=== PATIENT | female | born 1980 | race Hispanic/Latino ===

== ENCOUNTER 2018-06-20 19:49 | Emergency (ER) | payer MEDICARE, MEDICAID ==
[2018-06-20 20:02] VITALS: BP 150/83; PULSE 110; RESP 16; TEMP 97.7; O2SAT 98
--- NOTE | 2018-06-20 20:27 | ED PDOC ---
Upper Extremity Pain/Injury Time Seen by Provider: 06/20/18 20:02 Chief Complaint (Nursing): Upper Extremity Problem/Injury Chief Complaint (Provider): Upper Extremity Problem/Injury History Per: Patient History/Exam Limitations: no limitations Onset/Duration Of Symptoms: Days Current Symptoms Are (Timing): Still Present Additional Complaint(s): 37 y/o female with a PMHx of substance abuse presents to the ED for evaluation of an abnormal skin integrity to the right upper extremity. Patient describes the abnormal skin integrity as painful. Otherwise, patient denies any other complaints or pain at this time. PMD: Non [facility] Provider Past Medical History Reviewed: Historical Data, Nursing Documentation, Vital Signs Vital Signs: Last Vital Signs Temp 97.7 F 06/20/18 19:59 Pulse 110 H 06/20/18 19:59 Resp 16 06/20/18 19:59 BP 150/83 06/20/18 19:59 Pulse Ox 98 06/20/18 19:59 - Medical History PMH: Anxiety - Surgical History Surgical History: No Surg Hx - Family History Family History: States: Unknown Family Hx - Social History Drugs: Denies - Allergies Allergies/Adverse Reactions: Allergies Allergy/AdvReac Type Severity Reaction Status Date / Time Penicillins Allergy RASH Verified 06/20/18 19:57 - Laboratory Results Result Diagrams: 06/20/18 21:25 06/20/18 21:25 - ECG O2 Sat by Pulse Oximetry: 98 Medical Decision Making Medical Decision Making: Time: 2009 Plan: -- US Soft Tissue Time: 2041 Plan: -- CBC with Differentials -- CMP Time: 2246 IMPRESSION: Left antecubital fossa soft tissue edema. No evidence of abscess. Electronically signed on Jun 20, 2018 10:47:04 PM EST by: Michele Rodriguez M.D., JACOB Certified By [facility] Fellowship Trained MRI and CT Specialist Scribe Attestation: Documented by Sumit Cardona, acting as a scribe for Bernardo Fregoso PA-C. Provider Scribe Attestation: All medical record entries made by the Scribe were at my direction and personally dictated by me. I have reviewed the chart and agree that the record accurately reflects my personal performance of the history, physical exam, med ica decision making, and the department course for this patient. I have also personally directed, reviewed, and agree with the discharge instructions and disposition. Disposition - Clinical Impression Clinical Impression: Induration of skin - Patient ED Disposition Is Patient to be Admitted: No Doctor Will See Patient In The: Office Counseled Patient/Family Regarding: Studies Performed, Diagnosis, Need For Followup, Rx Given - Disposition Referrals: [facility] [Outside] Disposition: Routine/Home Disposition Time: 23:06 Condition: STABLE Instructions: Lysis of Adhesions (DC) Forms: [employer] (Italian)
[2018-06-20 21:33] LABS: BASO % 0.3 % (0.0-2.0); EOS # 0.4 K/uL (0.0-0.7); EOS % 5.7 % (0.0-4.0); HEMOGLOBIN 11.9 g/dL (12.0-16.0); LYMPH # 2.8 K/uL (1.0-4.3); LYMPH % 40.8 % (20.0-40.0); MEAN CELL VOLUME 80.8 fl (81.0-99.0); MEAN CORPUSCULAR HEMOGLOBIN 25.7 pg (27.0-31.0); MEAN CORPUSCULAR HGB CONC 31.8 g/dL (33.0-37.0); MONO # 0.5 K/uL (0.0-0.8); MONO % 6.9 % (0.0-10.0); NEUT # 3.1 K/uL (1.8-7.0); NEUT % 46.3 % (50.0-75.0); RBC 4.64 Mil/uL (3.80-5.20); RED CELL DISTRIBUTION WIDTH 15.8 % (11.5-14.5); WHITE BLOOD COUNT 6.8 K/uL (4.8-10.8)
[2018-06-20 21:41] LABS: ALB/GLOB RATIO 1.1 (1.0-2.1); ALBUMIN 3.6 g/dL (3.5-5.0); ALT/SGPT 36 U/L (9-52); AST/SGOT 64 U/L (14-36); BLOOD UREA NITROGEN 21 mg/dl (7-17); CALCIUM 8.8 mg/dL (8.4-10.2); GFR NON-AFRICAN AMERICAN > 60
--- NOTE | 2018-06-21 08:41 | US ---
Date of service: 06/20/2018 PROCEDURE: HISTORY: rule out abscess COMPARISON: TECHNIQUE: FINDINGS: Targeted imaging of the left antecubital fossa demonstrates soft tissue edema without solid or cystic abnormality. Recommend follow-up if clinically indicated. IMPRESSION: As above.
== END 2018-06-20 23:17 | disposition home or self-care (01) ==
LOC: H.ER 19:49
DX: R23.4 Changes in skin texture (principal); F41.9 Anxiety disorder, unspecified; Z88.0 Allergy status to penicillin

== ENCOUNTER 2018-08-07 10:47 | Inpatient (IN) | payer MEDICARE, MEDICAID ==
[2018-08-07 10:49] VITALS: BMI 26.2
[2018-08-07] MEDS ORDERED: Piperacillin/Tazobact 3.375 GM in Sodium Chloride 0.9% 100 ML IV STA (11:30)
--- NOTE | 2018-08-07 11:35 | ED PDOC ---
HPI: Skin/Bite Injury Time Seen by Provider: 08/07/18 10:57 Chief Complaint (Nursing): Abnormal Skin Integrity Chief Complaint (Provider): Arm infection History Per: Patient Additional Complaint(s): 37 yo female, PMH of DM and IVDS (Last used 1.5 weeks ago), presents with complaints of redness, swelling and pain to left elbow. Pt rpeorts she last used IV Heroin 1.5 weeks ago, unsure if she injected into AC. Pt notes she usually does her hands. Pt also reports congestion and cough x 2 weeks as well. no fever or chills. Pt reports the redness and swelling to her elbow was mild x 2 days and last night it became severe and now draining serous fluid. Past Medical History Reviewed: Nursing Documentation, Vital Signs Vital Signs: Last Vital Signs Temp 98.2 F 08/07/18 10:49 Pulse 109 H 08/07/18 10:49 Resp 17 08/07/18 10:49 BP 139/77 08/07/18 10:49 Pulse Ox 100 08/07/18 10:49 - Medical History PMH: Anxiety, Depression, Diabetes (IDDM) - Family History Family History: States: Unknown Family Hx - Social History Alcohol: Social Drugs: Cocaine, Opiates, Other (Last used IV heroin 1.5 weeks ago according to Pt) - Immunization History Hx Tetanus Toxoid Vaccination: No Hx Influenza Vaccination: No Hx Pneumococcal Vaccination: No - Home Medications Home Medications: Ambulatory Orders Medication Instructions Recorded ALPRAZolam [Xanax] 1 mg PO Q8 08/07/18 Cyclobenzaprine [Flexeril] 10 mg PO Q8 PRN 08/07/18 Insulin Aspart, Recombinant 6 - 11 unit SC AC 08/07/18 [Novolog] Insulin Detemir [Levemir] 5 unit SC QAM 08/07/18 Insulin Detemir [Levemir] 15 unit SC QPM 08/07/18 - Allergies Allergies/Adverse Reactions: Allergies Allergy/AdvReac Type Severity Reaction Status Date / Time Penicillins Allergy RASH Verified 07/29/18 18:28 Review of Systems ROS Statement: Except As Marked, All Systems Reviewed And Found Negative Constitutional: Positive for: Chills Musculoskeletal: Positive for: Arm Pain Skin: Positive for: Other (redness and swelling) Physical Exam - Reviewed Nursing Documentation Reviewed: Yes Vital Signs Reviewed: Yes - Physical Exam Appears: Positive for: Non-toxic, No Acute Distress, Uncomfortable Head Exam: Positive for: ATRAUMATIC, NORMAL INSPECTION, NORMOCEPHALIC Skin: Positive for: Normal Color, Warm, DRY Eye Exam: Positive for: EOMI, Normal appearance, PERRL ENT: Positive for: Normal ENT Inspection Neck: Positive for: Normal, Painless ROM Cardiovascular/Chest: Positive for: Regular Rate, Rhythm Respiratory: Positive for: CNT, Normal Breath Sounds Gastrointestinal/Abdominal: Positive for: Normal Exam, Soft Back: Positive for: Normal Inspection Extremity: Positive for: Tenderness, Swelling, Other (warmth and moderate erythema to anticubial fossa of L elbow. Site indurated and tender to palpation, no flutuance appreacted; however, (+) centtralized area of scabbing to AC fossa, (+) drainage of serous fluid. ) Neurologic/Psych: Positive for: Alert, Oriented - Laboratory Results Result Diagrams: 08/07/18 12:18 08/07/18 15:50 - ECG O2 Sat by Pulse Oximetry: 100 Medical Decision Making Medical Decision Making: IV access established and diagnostics ordered. Pt placed on cardiac rehabilitation program director: 109, Temp upon arrival: 99.9 F Lactate 2.2 11.2 WBC Pt meets criteria for sepsis IV Vanco and Zosyn administered thought EJ, IV access unable to be obtained. Morphine administered for pain. Case discussed with Surgeon on-call, Dr. Andres, who advised due to joint involvement, Ortho should be consulted. Orthopedic, Dr. Barrett, consulted and case discussed. Advised Bedside I&D and Pt can go home on trial of outpatient antibiotics at this time, with intentions for Pt to be seen in Clinic at [facility] on Fri. XR: IMPRESSION: Posttraumatic findings include antecubital fossa laceration, air within subcutaneous tissues, generalized soft tissue swelling. No foreign body visible. No osseous abnormality. Repeat temp on re-eval, 100.9. Pt medicated with Acetaminophen PO. Case discussed with ED MD, Dr. Bhakta, who agreed Pt to be admitted at this time, unstable for discharge home. Pt on re-eval also with severe pain, IV Dilaudid 1 mg administered. Case discussed with ED MD, Dr. Reina, who advised due to concern for septic joint, I&D should not be preformed at this time. US: IMPRESSION: Hypervascular heterogeneous phlegmonous region corresponding to area of interest left antecubital fossa region. No discrete/drainable collection. Med on-call, Dr. David contacted and case discussed. Arrangements made for admission and ID, Dana Coleman consulted as well. Advised to continue with Virgil at this time. 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
[2018-08-07 11:58] LABS: VENOUS BLOOD GAS BASE EXCESS -0.2 mmol/L (0.0-2.0); VENOUS BLOOD GAS PCO2 47 mmHg (40-60); VENOUS BLOOD GAS PO2 24 mm/Hg (30-55); VENOUS BLOOD PH 7.35 (7.32-7.43)
[2018-08-07] MEDS ORDERED: Piperacillin/Tazobact 3.375 gm Inj IVPB ONE (12:20)
[2018-08-07] MEDS ORDERED: Morphine 4 MG/ML VIAL ONE ×2 (12:20→13:19)
[2018-08-07 12:29] LABS: BASO # 0.1 K/uL (0.0-0.2); BASO % 0.6 % (0.0-2.0); EOS # 0.1 K/uL (0.0-0.7); EOS % 0.8 % (0.0-4.0); HEMOGLOBIN 13.5 g/dL (12.0-16.0); LYMPH # 1.8 K/uL (1.0-4.3); LYMPH % 15.8 % (20.0-40.0); MEAN CELL VOLUME 81.1 fl (81.0-99.0); MEAN CORPUSCULAR HEMOGLOBIN 26.2 pg (27.0-31.0); MEAN CORPUSCULAR HGB CONC 32.3 g/dL (33.0-37.0); MEAN PLATELET VOLUME 9.5 fl (7.2-11.7); MONO # 0.6 K/uL (0.0-0.8); NEUT # 8.7 K/uL (1.8-7.0); NEUT % 77.8 % (50.0-75.0); NRBC % 0.1 % (0.0-0.0); RBC 5.17 Mil/uL (3.80-5.20); WHITE BLOOD COUNT 11.2 K/uL (4.8-10.8)
[2018-08-07] MEDS ORDERED: DiphenhydrAMINE 50 mg/ml Inj IVP STA (12:34)
[2018-08-07 12:41] LABS: SQUAMOUS EPITHIAL 2 /hpf (0-5); URINE BACTERIA RARE (<OCC); URINE BILIRUBIN NEGATIVE (NEGATIVE); URINE BLOOD NEGATIVE (NEGATIVE); URINE CLARITY CLEAR (Clear); URINE COLOR YELLOW (YELLOW); URINE GLUCOSE (UA) >=500 mg/dL (NEGATIVE); URINE LEUKOCYTE ESTERASE NEG Leu/uL (Negative); URINE PROTEIN 30 mg/dL (NEGATIVE); URINE UROBILINOGEN 0.2-1.0 mg/dL (0.2-1.0)
[2018-08-07 13:04] LABS: BARBITURATES, UR NEGATIVE (NEGATIVE); BENZODIAZEPINES, UR POSITIVE (NEGATIVE); OPIATES, UR POSITIVE (NEGATIVE); PHENCYCLIDINE, UR NEGATIVE (NEGATIVE)
[2018-08-07] MEDS ORDERED: Morphine 4 MG/ML VIAL IM STA (13:16)
--- NOTE | 2018-08-07 14:32 | RAD ---
Date of service: 08/07/2018 HISTORY: Medical screening. Wound left upper extremity COMPARISON: No prior. FINDINGS: LUNGS: No active pulmonary disease. PLEURA: No significant pleural effusion identified, no pneumothorax apparent. CARDIOVASCULAR: No atherosclerotic calcification present Normal. OSSEOUS STRUCTURES: No significant abnormalities. VISUALIZED UPPER ABDOMEN: Normal. OTHER FINDINGS: None. IMPRESSION: No active disease.
--- NOTE | 2018-08-07 14:33 | RAD ---
Date of service: 08/07/2018 PROCEDURE: Left elbow HISTORY: r/o osteo COMPARISON: None TECHNIQUE: Standard protocol for this study/examination. FINDINGS: Laceration antecubital fossa best seen on the lateral view. The finding is marked on the study for review. Subcutaneous air identified as well. Soft tissue swelling about the elbow/antecubital fossa region. No visualized radiopaque foreign body. IMPRESSION: Posttraumatic findings include antecubital fossa laceration, air within subcutaneous tissues, generalized soft tissue swelling. No foreign body visible. No osseous abnormality.
[2018-08-07 16:07] LABS: ALBUMIN 3.3 g/dL (3.5-5.0); ALT/SGPT 18 U/L (9-52); AST/SGOT 22 U/L (14-36); BLOOD UREA NITROGEN 15 mg/dl (7-17); CALCIUM 8.6 mg/dL (8.4-10.2); GFR NON-AFRICAN AMERICAN > 60
[2018-08-07] MEDS ORDERED: Vancomycin 1 g Inj ONE (16:50)
[2018-08-07] MEDS ORDERED: Iohexol 300 100 ML IJ ONE (17:23)
[2018-08-07] MEDS ORDERED: Sodium Chloride 0.9% 0 ML IV ONE (17:23)
--- NOTE | 2018-08-07 18:34 | US ---
Date of service: 08/07/2018 PROCEDURE: Soft tissue ultrasound attention antecubital fossa region left upper extremity. HISTORY: Fluid collection suspected. COMPARISON: None TECHNIQUE: Standard protocol for this study/examination. FINDINGS: Phlegmonous process left arm antecubital fossa region marked as "area of interest swelling/redness". This measures 3.4 x 3.7 x 3.2 cm. Marked hypervascularity. Marked subcutaneous edema and findings of cellulitis. IMPRESSION: Hypervascular heterogeneous phlegmonous region corresponding to area of interest left antecubital fossa region. No discrete/drainable collection.
[2018-08-07] MEDS: Insulin Regular 100 units/ml SC SCH (22:18)
[2018-08-08] MEDS: Piperacillin/Tazobact 3.375 GM in Sodium Chloride 0.9% 100 ML IVPB SCH ×3 (00:56→16:52)
[2018-08-08] MEDS ORDERED: Insulin Regular 100 units/ml SC SCH (07:30)
[2018-08-08] MEDS ORDERED: INSULIN ASPART RECOMBINANT SC SCH (07:30)
[2018-08-08] MEDS: Insulin Regular 100 units/ml SC SCH (08:49)
[2018-08-08] MEDS: Insulin Lispro (humaLOG) 100 Units/ml Inj SC SCH ×5 (08:52→22:00)
[2018-08-08] MEDS: Enoxaparin 40 mg Syringe SC SCH (08:55)
[2018-08-08] MEDS ORDERED: Insulin Detemir 100 Units/ml Inj SC SCH (09:00)
[2018-08-08] MEDS: Acetaminophen-Codeine 300/30 mg Tab PO PRN ×2 (10:05→16:50)
[2018-08-08] MEDS ORDERED: Insulin Lispro (humaLOG) 100 Units/ml Inj SC ONE (16:39)
[2018-08-08] MEDS: Insulin Detemir 100 Units/ml Inj SC SCH (18:38)
--- NOTE | 2018-08-08 21:45 | HP ---
CHIEF COMPLAINT: Pus discharge from left elbow. HISTORY OF PRESENT ILLNESS: This is a 37-year-old female; known case of diabetes, drug abuse who had a skin grafting done on her left elbow, and the patient started having pus discharge and ulcer there so the patient was brought to the emergency room and was admitted for further management. REVIEW OF SYSTEM: Positive for pus discharge and swelling of left upper extremity. Review of systems, otherwise, is negative for headache, dizziness, syncope, loss of consciousness, chest pain, shortness of breath, nausea, vomiting, diarrhea, constipation. Review of systems of all other organ system is unremarkable. PAST MEDICAL HISTORY: Significant for diabetes, anxiety, depression, and substance abuse. PAST SURGICAL HISTORY: Remarkable for skin graft. PERSONAL HISTORY: The patient has cocaine and heroin abuse, smoking and alcohol abuse. FAMILY HISTORY: Noncontributory. MEDICATIONS: The patient is on Xanax, Flexeril, Novolog, and Levemir. ALLERGIES: THE PATIENT IS NOT ALLERGIC TO ANY MEDICATION OTHER THAN PENICILLIN. PHYSICAL EXAMINATION: GENERAL: A well-built, well-nourished, overweight 37-year-old female, in no acute distress. VITAL SIGNS: Temperature 97.6, pulse 70, respirations 20, blood pressure 152/86. HEENT: Pupils reacting to light. No JVD. No thyromegaly. No lymphadenopathy. No nystagmus. Normocephalic. Atraumatic skull. HEART: S1, S2 normal and regular. No significant murmur, gallop, or rub is heard. LUNGS: Shows good bilateral air exchange. No rales or rhonchi. ABDOMEN: Soft, nontender. No organomegaly. No fluid. Bowel sounds are plus and normal. EXTREMITIES: Left upper extremity is significantly swollen, cellulitic, erythematous, tender. There is no sign of distal neurovascular compromise. There is open area, and there is purulent discharge from the area of the previous graft site. DIAGNOSTIC DATA: Available diagnostic data reviewed. WBC 11.2, hemoglobin 13.5, hematocrit 41.9, platelets 319. Lactic acid level is 2.2. Sodium 129, potassium 4.3, chloride 96, bicarb 23, BUN 15, creatinine 0.6. Glucose is 304 and 462. Urinalysis is essentially negative. Urine toxicology is positive for cocaine and heroin. Chest x-ray is clear. Elbow x-rays show subcutaneous tissue with air and cellulitis. ADMITTING IMPRESSION: Cellulitis of left upper extremity, uncontrolled type 2 diabetes with hyperglycemia, intravenous drug abuse, postoperative wound complication, obesity with body mass index of 30. PLAN: As ordered. Linwood David MD
[2018-08-09] MEDS: Piperacillin/Tazobact 3.375 GM in Sodium Chloride 0.9% 100 ML IVPB SCH ×3 (01:32→17:04)
[2018-08-09 06:54] LABS: HEMOGLOBIN 12.2 g/dL (12.0-16.0); MEAN CELL VOLUME 80.5 fl (81.0-99.0); MEAN CORPUSCULAR HEMOGLOBIN 26.3 pg (27.0-31.0); MEAN CORPUSCULAR HGB CONC 32.7 g/dL (33.0-37.0); RBC 4.63 Mil/uL (3.80-5.20); WHITE BLOOD COUNT 7.8 K/uL (4.8-10.8)
[2018-08-09 07:24] VITALS: RESP 20
[2018-08-09 07:42] LABS: ALB/GLOB RATIO 0.8 (1.0-2.1); ALBUMIN 2.7 g/dL (3.5-5.0); ALT/SGPT 15 U/L (9-52); AST/SGOT 25 U/L (14-36); BLOOD UREA NITROGEN 19 mg/dl (7-17); CALCIUM 8.7 mg/dL (8.4-10.2); GFR NON-AFRICAN AMERICAN > 60
[2018-08-09] MEDS: Enoxaparin 40 mg Syringe SC SCH (08:30)
[2018-08-09] MEDS: Insulin Detemir 100 Units/ml Inj SC SCH ×2 (08:35→17:03)
[2018-08-09] MEDS: Insulin Lispro (humaLOG) 100 Units/ml Inj SC SCH ×4 (08:36→21:44)
--- NOTE | 2018-08-09 09:11 | PN ---
DATE: 08/09/2018 SUBJECTIVE: The patient is seen and examined. Interim events noted. The patient remains in regular medical floor. The patient feels much better. Left upper extremity pain much improved. No chest pain, no shortness of breath. PHYSICAL EXAMINATION: GENERAL: The patient is in no acute distress. VITAL SIGNS: Stable. HEART: S1 and S2, normal and regular. LUNGS: Good bilateral air exchange. ABDOMEN: Soft and nontender. EXTREMITIES: Left upper extremity, there is improved redness and tenderness and swelling. There is no sign of neurovascular compromise. Otherwise, the patient has no edema, no calf swelling, no tenderness. No acute ischemia. CENTRAL NERVOUS SYSTEM: Essentially unchanged. DIAGNOSTIC DATA: Available diagnostic data reviewed. ASSESSMENT AND PLAN: Overall, the patient is slowly improving. Plan as ordered. Linwood David MD
[2018-08-09] MEDS: Acetaminophen-Codeine 300/30 mg Tab PO PRN ×2 (10:02→16:59)
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
[2018-08-09 23:40] VITALS: TEMP 97.7
[2018-08-10] MEDS: Piperacillin/Tazobact 3.375 GM in Sodium Chloride 0.9% 100 ML IVPB SCH ×3 (01:01→10:00)
[2018-08-10] MEDS: Acetaminophen-Codeine 300/30 mg Tab PO PRN ×2 (01:25→09:03)
[2018-08-10 07:09] LABS: HEMOGLOBIN 11.8 g/dL (12.0-16.0); MEAN CELL VOLUME 81.5 fl (81.0-99.0); MEAN CORPUSCULAR HEMOGLOBIN 26.5 pg (27.0-31.0); MEAN CORPUSCULAR HGB CONC 32.5 g/dL (33.0-37.0); RBC 4.43 Mil/uL (3.80-5.20); RED CELL DISTRIBUTION WIDTH 14.7 % (11.5-14.5); WHITE BLOOD COUNT 7.6 K/uL (4.8-10.8)
[2018-08-10 07:24] LABS: VANCOMYCIN TROUGH < 5.0 ug/mL (5.0-10.0)
[2018-08-10 07:26] LABS: ALBUMIN 3.2 g/dL (3.5-5.0); ALT/SGPT 21 U/L (9-52); AST/SGOT 21 U/L (14-36); CALCIUM 8.9 mg/dL (8.4-10.2); GFR NON-AFRICAN AMERICAN > 60
[2018-08-10 07:28] LABS: BLOOD UREA NITROGEN 18 mg/dl (7-17)
[2018-08-10] MEDS: Insulin Lispro (humaLOG) 100 Units/ml Inj SC SCH ×2 (08:00→12:39)
[2018-08-10 08:26] VITALS: BP 139/90; PULSE 68; O2SAT 96
[2018-08-10] MEDS: Insulin Detemir 100 Units/ml Inj SC SCH (08:36)
[2018-08-10] MEDS: Enoxaparin 40 mg Syringe SC SCH (08:37)
--- NOTE | 2018-08-10 11:41 | CP.PCM.PN ---
Subjective - Date & Time of Evaluation Date of Evaluation: 08/10/18 Time of Evaluation: 07:00 - Subjective Subjective: 37 yo female, PMH of DM , presents with complaints of redness, swelling and pain to left elbow and antecubital fossa x 1 1/2 weeks Pt reports she last used IV Heroin 1.5 weeks ago, Area recently started to drain was started on I V antibiotics ID eval requested Wound improving afebrile blood cultures neg thus far Objective - Vital Signs/Intake and Output Vital Signs (last 24 hours): Temp Pulse Resp BP Pulse Ox 97.7 F 68 20 139/90 96 08/10/18 08:25 08/10/18 08:25 08/10/18 08:25 08/10/18 08:25 08/10/18 08:25 - Medications Medications: Current Medications Acetaminophen/Codeine Phosphate (Tylenol/Codeine 300 Mg/30 Mg) 1 tab PO Q6 PRN PRN Reason: Pain, moderate (4-7) Last Admin: 08/10/18 09:03 Dose: 1 tab Alprazolam (Xanax) 1 mg PO Q8 [facility] Last Admin: 08/10/18 09:03 Dose: 1 mg Cyclobenzaprine HCl (Flexeril) 10 mg PO Q8 PRN PRN Reason: Muscle spasm Enoxaparin Sodium (Lovenox) 40 mg SC DAILY [facility]; Protocol Last Admin: 08/10/18 08:37 Dose: 40 mg Vancomycin HCl 1 gm/ Sodium (Chloride) 250 mls @ 166.667 mls/hr IVPB DAILY [facility]; Protocol Last Admin: 08/10/18 09:06 Dose: 166.667 mls/hr Piperacillin Sod/Tazobactam (Sod 3.375 gm/ Sodium Chloride) 100 mls @ 100 mls/hr IVPB Q8 [facility]; Protocol Last Admin: 08/10/18 09:05 Dose: 100 mls/hr Insulin Detemir (Levemir) 15 units SC QPM [facility] Last Admin: 08/09/18 17:03 Dose: 15 units Insulin Detemir (Levemir) 15 units SC QAM [facility] Last Admin: 08/10/18 08:36 Dose: 15 units Insulin Human Lispro (Humalog) 0 units SC ACHS [facility]; Protocol Last Admin: 08/10/18 08:00 Dose: 10 units - Labs Labs: 02/25/19 06:30 08/10/18 06:30 - Constitutional Appears: Well - Head Exam Head Exam: ATRAUMATIC, NORMAL INSPECTION, NORMOCEPHALIC - Eye Exam Eye Exam: EOMI, Normal appearance, PERRL Pupil Exam: NORMAL ACCOMODATION, PERRL - ENT Exam ENT Exam: Mucous Membranes Moist, Normal Exam - Neck Exam Neck Exam: Full ROM, Normal Inspection. absent: Lymphadenopathy - Respiratory Exam Respiratory Exam: Clear to Ausculation Bilateral, NORMAL BREATHING PATTERN - Cardiovascular Exam Cardiovascular Exam: REGULAR RHYTHM, +S1, +S2. absent: Murmur - GI/Abdominal Exam GI & Abdominal Exam: Soft, Normal Bowel Sounds. absent: Tenderness - Rectal Exam Rectal Exam: Deferred - Exam Exam: NORMAL INSPECTION - Extremities Exam Extremities Exam: Full ROM, Normal Capillary Refill, Normal Inspection. absent: Joint Swelling, Pedal Edema - Back Exam Back Exam: NORMAL INSPECTION - Neurological Exam Neurological Exam: Alert, Awake, CN II-XII Intact, Normal Gait, Oriented x3 - Psychiatric Exam Psychiatric exam: Normal Affect, Normal Mood - Skin Skin Exam: Dry, Intact, Normal Color Additional comments: cellulitis lef antecubital fossa Assessment and Plan (1) Cellulitis of arm, left Status: Acute (2) Abscess Status: Acute - Assessment and Plan (Free Text) Assessment: 37 yo female, PMH of DM , presents with complaints of redness, swelling and pain to left elbow and antecubital fossa x 1 1/2 weeks Pt reports she last used IV Heroin 1.5 weeks ago, Area recently started to drain was started on IV antibiotics Blood c/s so far neg cont IV rx and wound care
--- NOTE | 2018-08-10 12:51 | PN ---
DATE: 08/10/2018 SUBJECTIVE: The patient is seen and examined. Interim events noted. Consults noted and appreciated. Infectious Diseases followup and intervention noted and appreciated. Infectious Diseases consult noted and appreciated. The patient remains in regular medical floor. The patient is sleeping, arousable, feels okay. Extremity pain improved. No distress. No chest pain. No shortness of breath. PHYSICAL EXAMINATION: GENERAL: The patient is in no acute distress. VITAL SIGNS: Stable. HEART: S1 and S2, normal and regular. LUNGS: Good bilateral air exchange. ABDOMEN: Soft and nontender. EXTREMITIES: Left upper extremity slowly healing. CENTRAL NERVOUS SYSTEM: Exam is essentially unchanged. DIAGNOSTIC DATA: Available diagnostic data is reviewed. noted. ASSESSMENT AND PLAN: Overall, the patient is slowly improving. Plan as ordered. Linwood David MD
[2018-08-10 13:12] LABS: HEPATITIS B SURFACE AG Negative (NEGATIVE)
[2018-08-10 13:18] LABS: HIV 1&2 ANTIBODY NEGATIVE (NEGATIVE)
[2018-08-10 13:19] LABS: HEPATITIS A IGM NEGATIVE (NEGATIVE); HEPATITIS B CORE AB NEGATIVE (NEGATIVE)
[2018-08-10 15:06] LABS: HEPATITIS C ANTIBODY REACTIVE (NEGATIVE)
--- NOTE | 2018-08-11 06:08 | CON ---
DATE: 08/10/2018 LOCATION: Room 657. HISTORY OF PRESENT ILLNESS: This is a 37-year-old female with recent uncontrolled type 1 insulin-dependent diabetes, presenting here with left elbow cellulitis and is now being referred for diabetic evaluation and management. PAST MEDICAL HISTORY: History of type 1 insulin-dependent diabetes, on a combination of Lantus and Humalog given at erratic and variable dosing as per the patient, history of hypertension and dyslipidemia. FAMILY HISTORY: Positive for diabetes and hypertension. SOCIAL HISTORY: The patient is an active IV drug abuser, using recently IV heroin and cocaine with also nicotine dependence. REVIEW OF SYSTEMS: Admits to generalized body weakness with episodic bouts of dizziness and lightheadedness, worse on the day of admission. Also admits to visual blurring and bifrontal headache. No chest pains or palpitations. Her oral intake has been variable with nausea, dyspepsia and recent polyuria, nocturia, and polydipsia. PHYSICAL EXAMINATION: GENERAL: An average built female in no apparent distress. VITAL SIGNS: Blood pressure 140/80, pulse of 70 beats per minute and regular, temperature 98, respirations 20. Height is 5 feet 4 inches. Weight is 176 pounds. HEENT: Head: Normocephalic. Eyes: Anicteric with pink conjunctivae. Funduscopy not possible at this time. Ears, Nose, and Throat: Otherwise normal. NECK: Supple. Thyroid gland is normal in size. No carotid bruits or cervical adenopathy. CARDIOPULMONARY: Some adynamic precordium. S1 and S2, rapid and regular. LUNGS: Clear to auscultation. ABDOMEN: Flat, soft with positive bowel sounds. EXTREMITIES: No peripheral edema. Pulses are +2 bilaterally. Her left forearm shows a swollen, erythematous, and tender antecubital area. Also, the elbow area as noted. LABORATORY DATA: Chemistries: BUN of 18, sodium 132, potassium 5.2, chloride 96, CO2 of 26, glucose 457, and creatinine 0.6. Her A1c is 11.0%. ASSESSMENT: This is a 37-year-old female with uncontrolled and decompensated type 1 insulin-dependent diabetes with marked hyperglycemic accelerations and a very elevated A1c, indicative of suboptimal metabolic control of her diabetic condition. Even prior to this admission, related to poor adherence and compliance to her insulin regimen. She also has a left elbow cellulitis related to recent intravenous drug use of heroin to the antecubital area as noted. PLAN OF MANAGEMENT: We will initiate a basal and bolus insulin drug combination for today as ordered. We will also modify the coverage scale to obviate hypoglycemia; however, the patient is insistent and adamant on going home against medical advice, despite a lengthy discussion regarding the imperative need for IV antibiotics and also better and optimal control of her diabetic condition. We will obtain serial chemistries and supplement accordingly as needed. We will also recommend IV hydration to optimize her fluid and electrolyte losses. Linda Gonzalez MD
== END 2018-08-10 13:51 | disposition left against medical advice (07) | DRG 920 ==
LOC: H.ER 10:47 → MERGE 19:42 → H.ERHOLD 19:42 → H.MEDSURG1 22:37
PROVIDERS: ADMIT Internal Medicine; ATTEND Internal Medicine
DX: T86.822 Skin graft (allograft) (autograft) infection (principal); L03.114 Cellulitis of left upper limb; E11.65 Type 2 diabetes mellitus with hyperglycemia; B95.4 Other streptococcus as the cause of diseases classified elsewhere; F10.10 Alcohol abuse, uncomplicated; F11.10 Opioid abuse, uncomplicated; F14.10 Cocaine abuse, uncomplicated; F32.9 Major depressive disorder, single episode, unspecified; F41.9 Anxiety disorder, unspecified; F17.210 Nicotine dependence, cigarettes, uncomplicated; E66.9 Obesity, unspecified; Z68.30 Body mass index [BMI] 30.0-30.9, adult; Z79.4 Long term (current) use of insulin; Z88.0 Allergy status to penicillin